=== PATIENT | female | born 2000 | race Caucasian/White ===

== ENCOUNTER 2020-02-23 01:37 | Emergency (ER) | payer SELFPAY ==
[2020-02-23 02:00] LABS: BACTERIA,URINE FEW /HPF; BILIRUBIN,URINE NEGATIVE (NEGATIVE); CLARITY,URINE SLIGHTLY CLOUDY; COLOR,URINE YELLOW; GLUCOSE, URINE (UA) NEGATIVE (NEGATIVE); KETONES,URINE 3+ (NEGATIVE); LEUKOCYTE ESTERASE ,URINE NEGATIVE (NEGATIVE); NITRITE,URINE NEGATIVE (NEGATIVE); PH,URINE 6.5 (5-9); PROTEIN,URINE NEGATIVE (NEGATIVE)
[2020-02-23 02:01] LABS: URINE OTHER NO /HPF
[2020-02-23] MEDS ORDERED: HYDROcodone/APAP 5 MG/325 MG (LORTAB) TAB PO STA (02:07)
[2020-02-23] MEDS ORDERED: ONDANSETRON 4 MG (ZOFRAN) ORAL DISSOLVE TAB PO STA (02:07)
--- NOTE | 2020-02-23 02:14 | ED General ---
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 She reports she thinks she is around 4 months as well. She has had no care. She denies any vaginal bleeding or discharge. She has no history of kidney stones that she is aware or that run in the family. She has had n/v with the pain. She feels the pain is 9-10 out of 10 and wrapping around her flank. She has not seen any provider for her and is not taking any medicines. She is not aware of any allergies to medicines. This is her first . Allergies and Home Medications Allergies Coded Allergies: No Known Drug Allergies (Unverified , 02/23/20) Patient Home Medication List Home Medication List Reviewed: Yes Review of Systems Review of Systems Constitutional: No chills, No fever EENTM: no symptoms reported Respiratory: no symptoms reported Cardiovascular: no symptoms reported Gastrointestinal: see HPI Genitourinary: see HPI; No discharge, No hematuria : Yes (about 4 months along) Musculoskeletal: see HPI Skin: no symptoms reported Psychiatric/Neurological: Anxiety Past Btwidzo-Rrzrar-Pdcjnq Hx Past Med/Social Hx: Reviewed Nursing Past Med/Soc Hx Patient Social History Alcohol Use: Denies Use Recreational Drug Use: No Recent Foreign Travel: No Contact w/Someone Who Travel: No Recent Infectious Disease Expo: No Recent Hopitalizations: No Physical Abuse: No Sexual Abuse: No Past Medical History Surgeries: No Respiratory: No Cardiac: No Neurological: No Genitourinary: No Gastrointestinal: No Musculoskeletal: No Endocrine: No HEENT: No Cancer: No Psychosocial: No Integumentary: No Blood Disorders: No Physical Exam Vital Signs Vital Signs - First Documented 02/23/20 01:48 Temp 36.6 Pulse 100 Resp 16 B/P (MAP) 132/77 (95) Pulse Ox 99 O2 Delivery Room Air Capillary Refill : Less Than 3 Seconds Height, Weight, BMI Height: '" Weight: lbs. oz. kg; BMI Method: General Appearance: WD/WN, Mild Distress Respiratory: Chest Non Tender, Lungs Clear, Normal Breath Sounds, No Accessory Muscle Use, No Respiratory Distress Cardiovascular: Regular Rate, Rhythm, Normal Peripheral Pulses Gastrointestinal: Normal Bowel Sounds, No Pulsatile Mass, Soft, Tenderness (left flank wrapping around her left side) Extremity: Normal Capillary Refill, No Pedal Edema Neurologic/Psychiatric: Alert, Oriented x3 Skin: Normal Color, Warm/Dry Progress/Results/Core Measures Suspected Sepsis Recent Fever Within 48 Hours: No Infection Criteria Present: None New/Unexplained Altered Menta: No Sepsis Screen: No Definite Risk SIRS Temperature: Pulse: 100 Respiratory Rate: 16 Laboratory Tests 02/23/20 02:23: White Blood Count 11.5H Blood Pressure 132 /77 Mean: 95 Laboratory Tests 02/23/20 02:23: Creatinine 0.42L, Platelet Count 302, Total Bilirubin 0.2 Results/Orders Lab Results Laboratory Tests Test 02/23/20 01:49 02/23/20 02:23 Range/Units Urine Color YELLOW Urine Clarity SLIGHTLY CLOUDY Urine pH 6.5 5-9 Urine Specific [place] >=1.030 1.016-1.022 Urine Protein NEGATIVE NEGATIVE Urine Glucose (UA) NEGATIVE NEGATIVE Urine Ketones 3+ H NEGATIVE Urine Nitrite NEGATIVE NEGATIVE Urine Bilirubin NEGATIVE NEGATIVE Urine Urobilinogen 0.2 < = 1.0 MG/DL Urine Leukocyte Esterase NEGATIVE NEGATIVE Urine RBC (Auto) NEGATIVE NEGATIVE Urine RBC NONE /HPF Urine WBC NONE /HPF Urine Squamous Epithelial Cells 5-10 /HPF Urine Crystals NONE /LPF Urine Bacteria FEW H /HPF Urine Casts NONE /LPF Urine Mucus SMALL H /LPF Urine Other NO /HPF White Blood Count 11.5 H 4.3-11.0 10^3/uL Red Blood Count 3.85 L 4.35-5.85 10^6/uL Hemoglobin 11.5 11.5-16.0 G/DL Hematocrit 33 L 35-52 % Mean Corpuscular Volume 86 80-99 FL Mean Corpuscular Hemoglobin 30 25-34 PG Mean Corpuscular Hemoglobin Concent 35 32-36 G/DL Red Cell Distribution Width 13.2 10.0-14.5 % Platelet Count 302 130-400 10^3/uL Mean Platelet Volume 8.1 7.4-10.4 FL Immature Granulocyte % (Auto) 0 % Neutrophils (%) (Auto) 80 H 42-75 % Lymphocytes (%) (Auto) 15 12-44 % Monocytes (%) (Auto) 4 0-12 % Eosinophils (%) (Auto) 0 0-10 % Basophils (%) (Auto) 0 0-10 % Neutrophils # (Auto) 9.2 H 1.8-7.8 X 10^3 Lymphocytes # (Auto) 1.7 1.0-4.0 X 10^3 Monocytes # (Auto) 0.5 0.0-1.0 X 10^3 Eosinophils # (Auto) 0.0 0.0-0.3 10^3/uL Basophils # (Auto) 0.0 0.0-0.1 10^3/uL Immature Granulocyte # (Auto) 0.0 0.0-0.1 10^3/uL Sodium Level 135 135-145 MMOL/L Potassium Level 3.4 L 3.6-5.0 MMOL/L Chloride Level 100 98-107 MMOL/L Carbon Dioxide Level 20 L 21-32 MMOL/L Anion Gap 15 H 5-14 MMOL/L Blood Urea Nitrogen 9 7-18 MG/DL Creatinine 0.42 L 0.60-1.30 MG/DL Estimat Glomerular Filtration Rate > 60 BUN/Creatinine Ratio 21 Glucose Level 108 H 70-105 MG/DL Calcium Level 8.9 8.5-10.1 MG/DL Corrected Calcium 9.1 8.5-10.1 MG/DL Total Bilirubin 0.2 0.1-1.0 MG/DL Aspartate Amino Transf (AST/SGOT) 18 5-34 U/L Alanine Aminotransferase (ALT/SGPT) 21 0-55 U/L Alkaline Phosphatase 65 40-136 U/L Total Protein 6.8 6.4-8.2 GM/DL Albumin 3.7 3.2-4.5 GM/DL Lipase 24 8-78 U/L Human Chorionic Gonadotropin, Quant 8257 H <5 MIU/ML My Orders Orders - LISETH FLAHERTY MD Ua Culture If Indicated (02/23/20 01:49) Heart Tones (02/23/20 01:50) Ondansetron Oral Dissolve Tab (Zofran (02/23/20 02:07) Hydrocodone/Apap 5/325 Tablet (Lortab 5 (02/23/20 02:07) Comprehensive Metabolic Panel (02/23/20 02:23) Lipase (02/23/20 02:23) Ed Iv/Invasive Line Start (02/23/20 02:23) Cbc With Automated Diff (02/23/20 02:23) Hcg,Quantitative (02/23/20 02:24) Ns Iv 1000 Ml (Sodium Chloride 0.9%) (02/23/20 02:24) Rx-Ondansetron Po (Rx-Zofran Po) (02/23/20 03:15) Vital Signs/I&O 02/23/20 01:48 Temp 36.6 Pulse 100 Resp 16 B/P (MAP) 132/77 (95) Pulse Ox 99 O2 Delivery Room Air Capillary Refill : Less Than 3 Seconds Blood Pressure Mean: 95 Progress Note #1: Progress Note urine sent to lab for testing. FHT around 136. Give Zofran 8 mg for nausea. See about Hydrocodone for pain. Progress Note #2: Time: 02:14 Progress Note UA shows elevated specific gravity and 3 + ketones to go with dehydration but not showing blood, nit, LE, or signs of UTI. Reviewed with pt and family that I could still not officially rule out a kidney stone or GI source of her symptoms with her being but could check labs and give IVF for hydration and if not improving with the po meds that were just given could add IV meds for nausea/pain. If ultrasound is still needed it would not be available until after 8 am Progress Note #3: Time: 03:07 Progress Note CBC with WBC count at 11.5 and mild left shift. CMP with no acute significant abnormality to explain her pain. Beta HCG at 8452. On recheck of patient she is sleeping comfortably in room. She states her pain is gone. Will have her push fluids and rest. Try Zofran prn for nausea. Acetaminophen if needed for pain. check with clinic for continued concerns. Return or see clinic if having more pain so can get ultrasound. Departure Impression Primary Impression: Acute left flank pain Additional Impression: Dehydration during Disposition: 01 HOME, SELF-CARE Condition: Stable Departure-Patient Inst. Decision time for Depature: 03:17 Referrals: NO,LOCAL PHYSICIAN (PCP) Primary Care Physician HADLEY LOPEZ DO Patient Instructions: Dehydration, Adult (DC), Flank Pain (DC), Stomach Pain in Early Add. Discharge Instructions: Make sure to drink plenty of water and stay well hydrated. You could try the dissolving nausea medicine if needed to help keep your stomach settled and keep from throwing up. Try Acetaminophen (Tylenol) if needed for pain Follow up with clinic and see Dr. Lopez or OB doctor for continued concerns or recurrent pain. If pain worsens or having more problems you could return or be seen again and an Ultrasound may be needed to check for a kidney stone or ovarian cyst or reason you are having pain during the . All discharge instructions reviewed with patient and/or family. Voiced understanding. Scripts Ondansetron (Ondansetron Odt) 4 Mg Tab.rapdis 4 MG PO Q6H PRN for NAUSEA/VOMITING for 2 Days, #8 TAB 0 Refills Prov: LISETH FLAHERTY MD 02/23/20 LISETH FLAHERTY MD Feb 23, 2020 02:14
[2020-02-23] MEDS ORDERED: NS IV 1000 ML 1,000 ML IV STA (02:24)
[2020-02-23 02:33] LABS: BASOPHILS % (AUTO) 0 % (0-10); EOSINOPHILS % (AUTO) 0 % (0-10); HEMATOCRIT 33 % (35-52); HEMOGLOBIN 11.5 G/DL (11.5-16.0); LYMPHOCYTES # (AUTO) 1.7 X 10^3 (1.0-4.0); LYMPHOCYTES % (AUTO) 15 % (12-44); MEAN CORPUSCULAR HEMOGLOBIN 30 PG (25-34); MEAN CORPUSCULAR HGB CONC 35 G/DL (32-36); MEAN CORPUSCULAR VOLUME 86 FL (80-99); MEAN PLATELET VOLUME 8.1 FL (7.4-10.4); MONOCYTES # (AUTO) 0.5 X 10^3 (0.0-1.0); MONOCYTES % (AUTO) 4 % (0-12); NEUTROPHILS # (AUTO) 9.2 X 10^3 (1.8-7.8); NEUTROPHILS % (AUTO) 80 % (42-75); PLATELET COUNT 302 10^3/uL (130-400); WHITE BLOOD COUNT 11.5 10^3/uL (4.3-11.0)
[2020-02-23 02:52] LABS: ALANINE AMINOTRANSFERASE 21 U/L (0-55); ALBUMIN 3.7 GM/DL (3.2-4.5); ALKALINE PHOSPHATASE 65 U/L (40-136); BILIRUBIN,TOTAL 0.2 MG/DL (0.1-1.0); BUN/CREATININE RATIO 21; CALCIUM 8.9 MG/DL (8.5-10.1); CARBON DIOXIDE 20 MMOL/L (21-32); CHLORIDE 100 MMOL/L (98-107); CREATININE SERUM 0.42 MG/DL (0.60-1.30); GFR ESTIMATED > 60; GLUCOSE 108 MG/DL (70-105); LIPASE 24 U/L (8-78); POTASSIUM 3.4 MMOL/L (3.6-5.0); SODIUM 135 MMOL/L (135-145); TOTAL PROTEIN 6.8 GM/DL (6.4-8.2)
[2020-02-23] MEDS ORDERED: RX-ONDANSETRON 4 MG ODT (ZOFRAN) PPK #4 PO PRN (03:15)
[2020-02-23] MEDS ORDERED: ONDA4TAB11 PO (03:20)
[2020-02-23 03:22] VITALS: BP 132/77
== END 2020-02-23 03:23 | disposition home or self-care (01) ==
LOC: ER FS 01:44
DX: O26.899 Other specified pregnancy related conditions, unspecified trimester (principal); R10.9 Unspecified abdominal pain; O99.280 Endocrine, nutritional and metabolic diseases complicating pregnancy, unspecified trimester; E86.0 Dehydration; Z3A.00 Weeks of gestation of pregnancy not specified
CPT/HCPCS: 36415; 80053; 81000; 83690; 84702; 85025

== ENCOUNTER → 2020-05-24 | Outpatient (CLI) | payer SELFPAY ==
[~2020-05-24] MED LIST: ONDA4TAB11 PO
== END ==
LOC: LABNPT 14:43
PROVIDERS: ATTEND Family Medicine
DX: Z34.03 Encounter for supervision of normal first pregnancy, third trimester (principal)
CPT/HCPCS: 87081

== ENCOUNTER → 2020-05-25 | Outpatient (CLI) | payer SELFPAY ==
[2020-05-25 15:37] LABS: HEMOGLOBIN 12.1 G/DL (11.5-16.0); MEAN PLATELET VOLUME 8.9 FL (7.4-10.4); WHITE BLOOD COUNT 8.7 10^3/uL (4.3-11.0)
== END ==
LOC: LAB FS 13:52
PROVIDERS: ATTEND Family Medicine
DX: Z34.03 Encounter for supervision of normal first pregnancy, third trimester (principal); Z3A.00 Weeks of gestation of pregnancy not specified
CPT/HCPCS: 36415; 84443; 85027; 86703; 86762; 86780; 86850; 86900; 86901; 87088; 87340

== ENCOUNTER 2020-06-16 20:01 | Inpatient (IN) | payer SELFPAY ==
[~2020-06-16] VITALS: Ht 157 cm; Wt 87.4 kg
[2020-06-16] VITALS (7 sets, daily range): BP systolic 114–128; BP diastolic 72–84
--- NOTE | 2020-06-16 20:10 | NUR ---
DICKMALIKA Williamson presented to unit via W'C from ED, accompanied by S/O , with c/o INDUCTION 40 11/01. DICKMALIKA Williamson weighed, gowned, voided, and to bed. EFHM and TOCO applied, VS taken. DICKMALIKA oriented to bed controls, call light, TV, heat, and A/C controls.
[2020-06-16] MEDS ORDERED: NS (IVPB) 250 ML ONE (21:03)
[2020-06-16 21:10] LABS: BASOPHILS % (AUTO) 0 % (0-10); BILIRUBIN,URINE NEGATIVE (NEGATIVE); CLARITY,URINE CLEAR; COLOR,URINE YELLOW; EOSINOPHILS # (AUTO) 0.1 10^3/uL (0.0-0.3); EOSINOPHILS % (AUTO) 1 % (0-10); GLUCOSE, URINE (UA) NEGATIVE (NEGATIVE); HEMATOCRIT 37 % (35-52); HEMOGLOBIN 12.6 g/dL (11.5-16.0); KETONES,URINE 2+ (NEGATIVE); LEUKOCYTE ESTERASE ,URINE NEGATIVE (NEGATIVE); LYMPHOCYTES # (AUTO) 2.4 10^3/uL (1.0-4.0); LYMPHOCYTES % (AUTO) 24 % (12-44); MEAN CORPUSCULAR HEMOGLOBIN 29 pg (25-34); MEAN CORPUSCULAR HGB CONC 34 g/dL (32-36); MEAN CORPUSCULAR VOLUME 84 fL (80-99); MEAN PLATELET VOLUME 9.7 fL (9.0-12.2); MONOCYTES # (AUTO) 0.6 10^3/uL (0.0-1.0); MONOCYTES % (AUTO) 6 % (0-12); NEUTROPHILS # (AUTO) 6.8 10^3/uL (1.8-7.8); NEUTROPHILS % (AUTO) 68 % (42-75); NITRITE,URINE NEGATIVE (NEGATIVE); PLATELET COUNT 270 10^3/uL (130-400); PROTEIN,URINE NEGATIVE (NEGATIVE)
[2020-06-16] MEDS: D5 LR IV SOLUTION 1,000 ML IV SCH (21:11)
[2020-06-16] MEDS ORDERED: NS (IVPB) 250 ML IV ONE (21:15)
[2020-06-16] MEDS ORDERED: MISOPROSTOL 100 MCG (CYTOTEC) TAB ONE (21:22)
[2020-06-16 21:29] LABS: BACTERIA,URINE FEW /HPF
[2020-06-16] MEDS ORDERED: TERBUTALINE INJ 1 MG/ML (BRETHINE) AMP SC PRN (21:30)
[2020-06-16] MEDS ORDERED: MISOPROSTOL 100 MCG (CYTOTEC) TAB PO ONE (21:30)
[2020-06-17] VITALS (21 sets, daily range): BP systolic 103–139; BP diastolic 56–99
[2020-06-17] MEDS ORDERED: MISOPROSTOL 100 MCG (CYTOTEC) TAB PO SCH (01:30)
--- NOTE | 2020-06-17 01:40 | NUR ---
Pt states she thinks her water broke. large amount of clear fluid noted on chux. amnisure positive. VE done. see flowsheet. Pt is feeling the ctx more. still able to sleep some.
[2020-06-17] MEDS: D5 LR IV SOLUTION 1,000 ML IV SCH (04:54)
--- NOTE | 2020-06-17 06:00 | NUR ---
pt up to bathroom to void. back to bed. no needs at this time.
--- NOTE | 2020-06-17 07:11 | NUR ---
Dr Bustos here to see pt. Discussed POC. No questions or needs at this time.
[2020-06-17] MEDS ORDERED: OXYTOCIN PRE-MIX DRIP 500 ML IV ONE (07:25)
--- NOTE | 2020-06-17 07:28 | NUR ---
Report given to Taylor KLINE
--- NOTE | 2020-06-17 07:34 | History & Physical-OB ---
OB - Chief Complaint & HPI Date/Time Date of Admission: Date of Admission: Jun 16, 2020 at 20:01 Date seen by a Provider: Jun 17, 2020 Time Seen by a Provider: 07:10 Chief Complaint/History OB-Reason for Admission/Chief: Induction of Labor Hx : 1 Hx Para: 0 Expected Date of Delivery: Jun 10, 2020 Gestational Age in Weeks: 40 Gestational Age in Days: 6 Indication for induction: post dates Other reason for admission: Patient had limited PNC with Dr. Titus in [facility] who is no longer delivering at [facility]. Dr. Titus contacted me last week to notify me of this patient who would be post dates with 3 visits. I agreed to proceed with induction, GBS was done at that last appointment. Admission Nurse Assessment Rev: Yes History of Labs gbs neg Allergies and Home Medications Allergies Coded Allergies: No Known Drug Allergies (Unverified , 06/16/20) Patient Home Medication List Home Medication List Reviewed: Yes OB - History Hx of Present Care: Yes Ultrasounds: Normal mid trimester US Obstetrical Complications: None Medical Complications: None Patient Past Medical History n/a Immunizations Hepatitis A: No Hepatitis B: No OB - Admission Exam Physical Exam Vitals: Vital Signs 06/16/20 06/17/20 06/17/20 06/17/20 21:15 00:45 06:00 07:12 Temp 36.7 Pulse 88 B/P (MAP) 115/64 (81) Pulse Ox 98 O2 Delivery Room Air HEENT: NCAT Heart: Rhythm Normal Lungs: Clear Abdomen: Gravid Extremities: Normal Reflexes: Normal Cervical Dilatation: 1cm Effacement: 75% Station: -1 Membranes: Intact Heart Rate: 130's Accelerations: Accelerations Present Decelerations: No Decelerations Short Term Variability: Present Mcc Variability: Average (6-25) Contractions on Admission: 6-10 Minutes Apart Intensity: Mild Labs Laboratory Tests Test 06/16/20 20:55 06/16/20 21:30 Range/Units White Blood Count 10.0 4.3-11.0 10^3/uL Red Blood Count 4.39 3.80-5.11 10^6/uL Hemoglobin 12.6 11.5-16.0 g/dL Hematocrit 37 35-52 % Mean Corpuscular Volume 84 80-99 fL Mean Corpuscular Hemoglobin 29 25-34 pg Mean Corpuscular Hemoglobin Concent 34 32-36 g/dL Red Cell Distribution Width 12.2 10.0-14.5 % Platelet Count 270 130-400 10^3/uL Mean Platelet Volume 9.7 9.0-12.2 fL Immature Granulocyte % (Auto) 0 % Neutrophils (%) (Auto) 68 42-75 % Lymphocytes (%) (Auto) 24 12-44 % Monocytes (%) (Auto) 6 0-12 % Eosinophils (%) (Auto) 1 0-10 % Basophils (%) (Auto) 0 0-10 % Neutrophils # (Auto) 6.8 1.8-7.8 10^3/uL Lymphocytes # (Auto) 2.4 1.0-4.0 10^3/uL Monocytes # (Auto) 0.6 0.0-1.0 10^3/uL Eosinophils # (Auto) 0.1 0.0-0.3 10^3/uL Basophils # (Auto) 0.0 0.0-0.1 10^3/uL Immature Granulocyte # (Auto) 0.0 0.0-0.1 10^3/uL Urine Color YELLOW Urine Clarity CLEAR Urine pH 6.0 5-9 Urine Specific [place] >=1.030 1.016-1.022 Urine Protein NEGATIVE NEGATIVE Urine Glucose (UA) NEGATIVE NEGATIVE Urine Ketones 2+ H NEGATIVE Urine Nitrite NEGATIVE NEGATIVE Urine Bilirubin NEGATIVE NEGATIVE Urine Urobilinogen 1.0 < = 1.0 MG/DL Urine Leukocyte Esterase NEGATIVE NEGATIVE Urine RBC (Auto) NEGATIVE NEGATIVE Urine RBC NONE /HPF Urine WBC 2-5 /HPF Urine Crystals NONE /LPF Urine Bacteria FEW H /HPF Urine Casts NONE /LPF Urine Mucus MODERATE H /LPF Urine Culture Indicated YES OB - Assessment/Plan/Diagnosis Assessment Assessment: induction of labor Admission Dx 20 yo @ 40.6 weeks Post dates GBS neg Limited care Admission Status: Inpatient Order (span 2 midnights) Reason for Inpatient Admission: induction of labor at term Plan Plan: Induction Induction Method: per Misoprostol Protocol KISHORE DRUMMOND DO Jun 17, 2020 07:34
[2020-06-17] MEDS ORDERED: LIDOCAINE/EPI 2% 1:200,00 (XYLOCAINE) 10 ML VIAL ONE (09:25)
--- NOTE | 2020-06-17 10:23 | OB Labor & Delivery Record ---
L&D History Date of Service Date of Service: Jun 17, 2020 History Expected Date of Delivery: Jun 10, 2020 Gestational Age in Weeks: 40 Hx : 1 Hx Para: 0 Complications Events: No Care (3 visits with another provider.) Operative Indications (Cesarea: N/A-Vaginal Delivery Intrapartal Events: None L&D Stage1 Stage One Onset of Labor - Date: Jun 17, 2020 Monitors and Tracing Monitor Mode: External Heart Rate: 145 Monitor Decelerations: Early Station: -2 Sap Basis Consultant Variability: Average (6-10) Short Term Variability: Present Presentation: Vertex Vital Signs VS - Last 72 Hours, by Label 06/16/20 06/16/20 06/16/20 06/16/20 20:20 21:15 21:45 22:15 Temp 37.0 37.0 Pulse 89 89 89 77 Resp 18 18 18 18 B/P (MAP) 128/83 (98) 123/72 (89) 115/79 (91) Pulse Ox 98 O2 Delivery Room Air Room Air Room Air 06/16/20 06/16/20 06/16/20 06/17/20 22:45 23:15 23:44 00:15 Pulse 88 104 78 73 Resp 18 18 18 18 B/P (MAP) 120/84 (96) 114/72 (86) 120/75 (90) 119/71 (87) O2 Delivery Room Air Room Air Room Air Room Air 06/17/20 06/17/20 06/17/20 06/17/20 00:45 01:20 03:00 05:00 Temp 36.4 Pulse 88 88 89 81 Resp 18 18 18 20 B/P (MAP) 124/84 (97) 124/84 (97) 113/69 (84) 135/89 (104) O2 Delivery Room Air 06/17/20 06/17/20 06/17/20 06/17/20 05:00 06:00 07:12 07:25 Temp 36.7 36.0 36.7 36.6 Pulse 100 88 77 Resp 20 20 B/P (MAP) 132/83 (99) 115/64 (81) 111/58 (75) O2 Delivery Room Air Rupture of Membranes Spontaneous Ruture of Membrane: Yes Amniotic Membrane Rupture Time: 0140 Amniotic Membrane Fluid Desc.: Clear Vaginal Bleeding Description: Normal Show Progress/Notes Patient admitted for cervical ripening last night, given cytotec PO overnight, SROM occured and pitocin started this AM. She progressed to complete and +2 station without epidural or IV analgesia. L&D Stage2 Stage Two Stage II Date: Jun 17, 2020 Monitors and Tracing Monitor Mode: External Heart Rate: 145 Monitor Accelerations: Uniform Monitor Decelerations: Variable Sap Basis Consultant Variability: Average (6-10) Short Term Variability: Present Position: Right Occiput Anterior Presentation: Vertex Signs of Distress by FHT Signs of Distress Due to ineffective maternal pushing discussed operative vacuum delivery. Kiwi placed on flexion point on scalp, 50 mmhg applied with next maternal pushing and with gentle extension of the head over a RML episiotomy the head was delivered and suction released. Anterior and posterior shoulders delivered w ithout difficulty. Cord Descript/Complications Cord Vessel Description: 3 Vessels Delivery Type Infant Delivery Method: Low Vacuum Extraction Anterior Shoulder: Right Episiotomy/Perineal Laceration Laceraction(s)/Extensions: Yes Episiotomy Description: Right Mediolateral Location Modifier: Right Sutures Used: Vicryl Degree (describe repair) RML repaired using 3-0 and 2-0 vicryl suture in usual fashion. Condition of Infant Delivery 1 minute Comment: 8 5 minute Comment: 9 Notes Live male weight 8lbs 9 oz. Condition of Infant Condition of Infant: Living Exam: No Observed Abnormalities Resuscitation Resuscitation: N/A - Spontaneous Resp L&D Stage3 Stage Three Stage III Date: Jun 17, 2020 Pictocin Pitocin Administration mu/min: 2 Pitocin ml/hr: 2 Pitocin Administration Comment: 30 mu wide open at delivery of placenta Placenta Delivery Placenta Delivery: Spontaneous Delivery Summary Summary Estimated blood loss (mL): 300 Attending at delivery: Kishore Drummond DO Condition of Delivery Examined: Cervix Examined, Uterus Explored Post Hemorrhage: No Condition of Mother stable Condition of (s) stable KISHORE DRUMMOND DO Jun 17, 2020 10:23
[2020-06-17] MEDS ORDERED: HYDROcodone/APAP 5 MG/325 MG (LORTAB) TAB PO PRN (10:30)
[2020-06-17] MEDS ORDERED: OXYTOCIN PRE-MIX DRIP 500 ML IV SCH (10:30)
[2020-06-17] MEDS ORDERED: WITCH HAZEL(TUCKS) 40 EA JAR TOP PRN (10:30)
[2020-06-17] MEDS ORDERED: TETANUS,DIPTH,PERTUSS P/F (BOOSTRIX) 0.5 ML VIAL IM ONE (10:30)
[2020-06-17] MEDS ORDERED: MEASLES,MUMPS,RUBELLA 1 EA INJ SQ ONE (10:30)
[2020-06-17] MEDS ORDERED: DIBUCAINE (NUPERCAINAL) 1% OINT 30 GM TOP PRN (10:30)
[2020-06-17] MEDS ORDERED: BENZOCAINE/MENTHOL (DERMOPLAST) 60 ML CAN TP PRN (10:30)
[2020-06-17] MEDS: IBUPROFEN 600 MG (MOTRIN) TAB PO SCH ×2 (12:32→22:21)
--- NOTE | 2020-06-17 12:35 | NUR ---
up to bathroom. spontaneous void. performed pericare independently. applied dermoplast. new vpad on. ambulated to room 312 with RN , s/o and at side. reviewed temp control, call light, and remote. denies further need at this time.
[2020-06-17] MEDS ORDERED: CATHETER FLUSH 10 ML SYR IV SCH (14:00)
[2020-06-17] MEDS ORDERED: DOCUSATE SODIUM 100 MG (COLACE) CAP PO SCH (21:00)
[2020-06-18] MEDS: IBUPROFEN 600 MG (MOTRIN) TAB PO SCH ×3 (05:20→10:37)
[2020-06-18 05:21] VITALS: BP 98/54
[2020-06-18 05:49] LABS: BASOPHILS % (AUTO) 0 % (0-10); EOSINOPHILS # (AUTO) 0.1 10^3/uL (0.0-0.3); EOSINOPHILS % (AUTO) 1 % (0-10); HEMATOCRIT 32 % (35-52); HEMOGLOBIN 10.8 g/dL (11.5-16.0); LYMPHOCYTES # (AUTO) 2.4 10^3/uL (1.0-4.0); LYMPHOCYTES % (AUTO) 25 % (12-44); MEAN CORPUSCULAR HEMOGLOBIN 29 pg (25-34); MEAN CORPUSCULAR HGB CONC 34 g/dL (32-36); MEAN CORPUSCULAR VOLUME 87 fL (80-99); MEAN PLATELET VOLUME 9.8 fL (9.0-12.2); MONOCYTES # (AUTO) 0.7 10^3/uL (0.0-1.0); MONOCYTES % (AUTO) 7 % (0-12); NEUTROPHILS # (AUTO) 6.6 10^3/uL (1.8-7.8); NEUTROPHILS % (AUTO) 67 % (42-75); PLATELET COUNT 175 10^3/uL (130-400)
[2020-06-18] MEDS ORDERED: PRENATAL VITAMIN 1 EA TAB PO SCH (07:00)
[2020-06-18 08:00] VITALS: BP 116/67
[2020-06-18] MEDS ORDERED: DCS100C PO (08:13)
[2020-06-18] MEDS ORDERED: ACHD5005 PO (08:13)
[2020-06-18] MEDS ORDERED: BENZ78AE5 TP (08:13)
[2020-06-18] MEDS ORDERED: DIBU30OI TOP (08:13)
[2020-06-18] MEDS ORDERED: IBUP-844 PO (08:13)
--- NOTE | 2020-06-18 08:15 | Discharge Inst-Women's Service ---
Discharge Inst-Women's Serv Depart Medication/Instructions New, Converted or Re-Newed RX: RX on Chart Final Diagnosis PPD 1 VAVD Problems Reviewed?: Yes Consults/Follow Up Additional Follow Up: Yes Orders/Referrals Dr. Drummond in 6 weeks Activity Activity: Activity as Tolerated Driving Instructions: No Driving for 1 Week NO SMOKING: NO SMOKING Nothing Inside Vagina: No Douching, No [place], No Tampons Diet Discharge Diet: No Restrictions Symptoms to Report to : Bleeding Excessive, Pain Increased, Fever Over 101 Degrees F, Vaginal Bleeding Increase, Questions/Concerns For Any Problems or Questions: Contact Your Physician KISHORE DRUMMOND DO Jun 18, 2020 08:15
--- NOTE | 2020-06-18 08:16 | Postpartum Progress Note ---
Note Note Day # 1 Subjective: Patient is without complaints. Ambulating, voiding. Tolerating a regular diet without nausea or vomiting. Normal lochia. Pain is well controlled with oral pain medications. Objective: Physical Exam: General - Alert and oriented, no apparent distress Abdomen - Soft, appropriately tender to palpation, non-distended, fundus firm at umbilicus Extremities - no edema, negative Maria R's bilaterally Assessment: PPD 1 VAVD Plan: Routine care. Encourage breast feeding. Encourage ambulation. Ferrous sulfate supplementation. Plan for discharge today Vitals - Labs Vital Signs - I&O Vital Signs Date Time Temp Pulse Resp B/P (MAP) Pulse Ox O2 Delivery O2 Flow Rate FiO2 06/18/20 05:21 36.3 80 18 98/54 (69) 98 06/17/20 23:30 36.2 80 20 103/56 (72) 97 Room Air 06/17/20 20:15 36.3 90 20 117/72 (87) Room Air 06/17/20 16:15 36.5 100 20 119/68 (85) Room Air 06/17/20 12:25 36.9 103 20 128/77 (94) Room Air 06/17/20 11:10 36.8 106 20 128/58 (81) Room Air 06/17/20 10:55 100 20 119/56 (77) Room Air 06/17/20 10:40 37.0 111 20 124/60 (81) Room Air 06/17/20 10:25 37.1 100 20 130/76 (94) Room Air 06/17/20 10:10 37.0 115 20 118/66 (83) Room Air 06/17/20 09:40 37.0 169 20 139/99 (112) Room Air 06/17/20 09:10 78 20 112/65 (81) Room Air 06/17/20 08:55 68 20 109/68 (82) Room Air 06/17/20 08:40 93 20 103/62 (76) Room Air 06/17/20 08:25 82 20 120/75 (90) Room Air I & O 06/18/20 06:59 Intake Total 1625 ml Balance 1625 ml Labs Laboratory Tests 06/18/20 05:20: White Blood Count 10.0, Red Blood Count 3.71L, Hemoglobin 10.8L, Hematocrit 32L, Mean Corpuscular Volume 87, Mean Corpuscular Hemoglobin 29, Mean Corpuscular Hemoglobin Concent 34, Red Cell Distribution Width 12.5, Platelet Count 175, Mean Platelet Volume 9.8, Immature Granulocyte % (Auto) 1, Neutrophils (%) (Auto) 67, Lymphocytes (%) (Auto) 25, Monocytes (%) (Auto) 7, Eosinophils (%) (Auto) 1, Basophils (%) (Auto) 0, Neutrophils # (Auto) 6.6, Lymphocytes # (Auto) 2.4, Monocytes # (Auto) 0.7, Eosinophils # (Auto) 0.1, Basophils # (Auto) 0.0, Immature Granulocyte # (Auto) 0.1 Microbiology 06/16/20 Urine Culture - Final, Complete Gram Pos Mixed Bacterial [place] KISHORE DRUMMOND DO Jun 18, 2020 08:16
[2020-06-18] MEDS ORDERED: FERROUS SULF 325 MG (IRON) TAB PO SCH (09:00)
--- NOTE | 2020-06-18 13:52 | NUR ---
MALIKA CRAWFORD demonstrates understanding of discharge instructions and accurately returns instructions upon questioning. Copy of Post-Discharge Instructions and Medication Discharge Instructions given to PATIENT. MALIKA CRAWFORD is able to manage continuing needs after discharge. Patients belongings returned to PATIENT. Skin dry and intact; no breakdown noted. Patient discharged from 3312-1 on 06-18-20 at 1352. MALIKA CRAWFORD left floor via W/C, accompanied by STAFF.
== END 2020-06-18 13:52 | disposition home or self-care (01) | DRG 807 ==
LOC: MERGE 20:01 → LDRP 20:01
PROVIDERS: ADMIT Obstetrics & Gynecology; ATTEND Obstetrics & Gynecology
PROC: 3E0D7GC Introduction of Other Therapeutic Substance into Mouth and Pharynx, Via Natural or Artificial Opening (ICD-10-PCS; 2020-06-16)
PROC: 10D07Z6 Extraction of Products of Conception, Vacuum, Via Natural or Artificial Opening (ICD-10-PCS; principal; 2020-06-17)
PROC: 0W8NXZZ Division of Female Perineum, External Approach (ICD-10-PCS; 2020-06-17)
DX: O48.0 Post-term pregnancy (principal); Z37.0 Single live birth; O75.81 Maternal exhaustion complicating labor and delivery; Z3A.40 40 weeks gestation of pregnancy; Z20.822 Contact with and (suspected) exposure to COVID-19
CPT/HCPCS: 36415; 81000; 85025; 86850; 86900; 86901; 87088; 87635

== ENCOUNTER 2022-05-24 10:47 | Inpatient (IN) | payer SELFPAY ==
[2022-05-24] VITALS (37 sets, daily range): BP systolic 107–132; BP diastolic 60–88
[~2022-05-24] VITALS: Ht 170 cm; Wt 88.6 kg
[~2022-05-24 10:47] MED LIST changes: +ACHD5005 PO; +BENZ78AE5 TP; +DIBU30OI TOP; +DOCU-239 PO; +IBUP-844 PO
[2022-05-24] MEDS: D5 LR IV SOLUTION 1,000 ML IV SCH ×2 (11:10→19:54)
[2022-05-24] MEDS ORDERED: AMPICILLIN FOR IV USE 2,000 MG in NS (IVPB) 50 ML IV SCH (11:43)
[2022-05-24] MEDS ORDERED: MEPIVACAINE (CARBOCAINE) 2% 50 ML VIAL INJ ONE (11:45)
[2022-05-24] MEDS ORDERED: D5 LR IV SOLUTION 1,000 ML IV SCH (11:45)
[2022-05-24 11:54] LABS: BASOPHILS % (AUTO) 0 % (0-10); EOSINOPHILS % (AUTO) 0 % (0-10); HEMATOCRIT 36 % (35-52); HEMOGLOBIN 11.8 g/dL (11.5-16.0); LYMPHOCYTES # (AUTO) 1.9 10^3/uL (1.0-4.0); LYMPHOCYTES % (AUTO) 21 % (12-44); MEAN CORPUSCULAR HEMOGLOBIN 27 pg (25-34); MEAN CORPUSCULAR HGB CONC 33 g/dL (32-36); MEAN CORPUSCULAR VOLUME 81 fL (80-99); MEAN PLATELET VOLUME 9.3 fL (9.0-12.2); MONOCYTES # (AUTO) 0.5 10^3/uL (0.0-1.0); MONOCYTES % (AUTO) 5 % (0-12); NEUTROPHILS # (AUTO) 6.6 10^3/uL (1.8-7.8); NEUTROPHILS % (AUTO) 73 % (42-75); PLATELET COUNT 287 10^3/uL (130-400); WHITE BLOOD COUNT 9.1 10^3/uL (4.3-11.0)
--- NOTE | 2022-05-24 12:14 | History & Physical-OB ---
OB - Chief Complaint & HPI Date/Time Date of Admission: Date of Admission: May 24, 2022 at 11:45 Date seen by a Provider: May 24, 2022 Time Seen by a Provider: 11:30 Chief Complaint/History OB-Reason for Admission/Chief: Rupture of Membranes Hx : 2 Hx Para: 1 Expected Date of Delivery: May 20, 2022 Gestational Age in Weeks: 40 Gestational Age in Days: 4 Admission Nurse Assessment Rev: Yes Other No OB us performed. She was to have her first one during the afternoon day of admission at [facility] Allergies and Home Medications Allergies Coded Allergies: No Known Drug Allergies (Unverified , 02/23/20) Patient Home Medication List Home Medication List Reviewed: Yes Discontinued Medications Benzocaine/Menthol (Dermoplast Pain Relieving [place]) 78 Gm Aerosol, 56 ML TP UD PRN for PAIN- SEE INSTRUCTIONS Discontinued Reason: No Longer Taking Prescribed by: KISHORE DRUMMOND on 06/18/20812 Last Action: Discontinued Dibucaine (Dibucaine) 30 Gm Oint, 0 GM TOP UD PRN for PAIN- SEE INSTRUCTIONS Discontinued Reason: No Longer Taking Prescribed by: KISHORE DRUMMOND on 06/18/20812 Last Action: Discontinued Docusate Sodium (Dok) 100 Mg Capsule, 100 MG PO BID PRN for CONSTIPATION-1ST LINE Discontinued Reason: No Longer Taking Prescribed by: KISHORE DRUMMOND on 06/18/20812 Last Action: Discontinued Hydrocodone/Acetaminophen (Hydrocodone-Acetamin 5-325 mg) 1 Each Tablet, 1 TAB PO Q4H PRN for PAIN-MODERATE (5-7) Discontinued Reason: No Longer Taking Prescribed by: KISHORE DRUMMOND on 06/18/20812 Last Action: Discontinued Ibuprofen (Ibu) 600 Mg Tablet, 600 MG PO Q6HR Discontinued Reason: No Longer Taking Prescribed by: KISHORE DRUMMOND on 06/18/20812 Last Action: Discontinued Ondansetron (Ondansetron Odt) 4 Mg Tab.rapdis, 4 MG PO Q6H PRN for NAUSEA/VOMITING Discontinued Reason: No Longer Taking Prescribed by: LISETH FLAHERTY on 02/23/20 0320 Last Action: Discontinued OB - History Hx of Present Care: Yes (1 visit) Ultrasounds: No ultrasounds Obstetrical Complications: None Medical Complications: None Other Concerns: late care. First visit May 17 at [facility] Patient Past Medical History n/a Immunizations Hepatitis A: No Hepatitis B: No OB - Admission Exam Physical Exam HEENT: Moist Membranes Heart: Rhythm Normal Abdomen: Gravid Cervical Dilatation: 4cm Membranes: Ruptured Amniotic Fluid: Thin Meconium Heart Rate: 140's Accelerations: Accelerations Present Short Term Variability: Present Labs Laboratory Tests Test 05/24/22 11:10 Range/Units White Blood Count 9.1 4.3-11.0 10^3/uL Red Blood Count 4.40 3.80-5.11 10^6/uL Hemoglobin 11.8 11.5-16.0 g/dL Hematocrit 36 35-52 % Mean Corpuscular Volume 81 80-99 fL Mean Corpuscular Hemoglobin 27 25-34 pg Mean Corpuscular Hemoglobin Concent 33 32-36 g/dL Red Cell Distribution Width 12.5 10.0-14.5 % Platelet Count 287 130-400 10^3/uL Mean Platelet Volume 9.3 9.0-12.2 fL Immature Granulocyte % (Auto) 1 % Neutrophils (%) (Auto) 73 42-75 % Lymphocytes (%) (Auto) 21 12-44 % Monocytes (%) (Auto) 5 0-12 % Eosinophils (%) (Auto) 0 0-10 % Basophils (%) (Auto) 0 0-10 % Neutrophils # (Auto) 6.6 1.8-7.8 10^3/uL Lymphocytes # (Auto) 1.9 1.0-4.0 10^3/uL Monocytes # (Auto) 0.5 0.0-1.0 10^3/uL Eosinophils # (Auto) 0.0 0.0-0.3 10^3/uL Basophils # (Auto) 0.0 0.0-0.1 10^3/uL Immature Granulocyte # (Auto) 0.1 0.0-0.1 10^3/uL OB - Assessment/Plan/Diagnosis Assessment Assessment: rupture of membranes (at term 40 weeks) Admission Dx 1. IUP at term 40 weeks with SROM Admission Status: Inpatient Order (span 2 midnights) Reason for Inpatient Admission: L&D Plan Plan: Expectant Management Other Plan -doesn't desire epidural or IV pain meds -pitocin as needed BEBE GARCIA MD May 24, 2022 12:14
[2022-05-24] MEDS ORDERED: CATHETER FLUSH 10 ML SYR IV SCH (14:00)
[2022-05-24] MEDS ORDERED: OXYTOCIN PRE-MIX DRIP 500 ML IV SCH ×2 (15:30→22:30)
[2022-05-24] MEDS: AMPICILLIN FOR IV USE 1,000 MG in NS (IVPB) 50 ML IV SCH ×2 (15:41→19:53)
--- NOTE | 2022-05-24 16:55 | Labor Progress Note ---
Labor Progress Note Labor Progress Note Date Seen by Provider: May 24, 2022 Time Seen by Provider: 16:40 Subjective: Patient in labor. Pitocin just started within the last hour Objective: (Can we insert 24 hour vitals here?) Cervical exam: 5 per nurse Presentation: vertex heart tones: 140 beats per minute, normal variability, reactive Tocometer: 2 ctx/10 minutes Assessment/Plan: Dorothy Maxwell is a (22 /Para 2 / 1,Gestational Age (wks)38 here for []. CEFM/TOCO Continue pitocin Anticipate vaginal delivery. Vitals - Labs Vital Signs - I&O Vital Signs Date Time Temp Pulse Resp B/P (MAP) Pulse Ox O2 Delivery O2 Flow Rate FiO2 05/24/22 14:20 36.7 95 18 121/79 (93) 05/24/22 13:50 90 18 122/77 (92) 05/24/22 13:20 81 18 117/78 (91) 05/24/22 12:50 94 18 119/76 (90) 05/24/22 12:20 87 18 127/79 (95) 99 Room Air 05/24/22 12:20 38.3 110 18 99 Room Air 05/24/22 12:05 37.3 05/24/22 11:50 104 18 125/79 (94) Room Air 05/24/22 11:20 100 18 118/79 (92) Room Air 05/24/22 10:55 38.3 110 18 124/84 (97) 100 Room Air Labs Laboratory Tests 05/24/22 11:10: White Blood Count 9.1, Red Blood Count 4.40, Hemoglobin 11.8, Hematocrit 36, Mean Corpuscular Volume 81, Mean Corpuscular Hemoglobin 27, Mean Corpuscular Hemoglobin Concent 33, Red Cell Distribution Width 12.5, Platelet Count 287, Rosa M n Platelet Volume 9.3, Immature Granulocyte % (Auto) 1, Neutrophils (%) (Auto) 73, Lymphocytes (%) (Auto) 21, Monocytes (%) (Auto) 5, Eosinophils (%) (Auto) 0, Basophils (%) (Auto) 0, Neutrophils # (Auto) 6.6, Lymphocytes # (Auto) 1.9, Monocytes # (Auto) 0.5, Eosinophils # (Auto) 0.0, Basophils # (Auto) 0.0, Immature Granulocyte # (Auto) 0.1 BEBE GARCIA MD May 24, 2022 16:54
[2022-05-24] MEDS ORDERED: ONDANSETRON 4 MG/2 ML (SDV) Z0FRAN ONE (20:51)
[2022-05-24] MEDS ORDERED: ONDANSETRON 4 MG/2 ML (SDV) Z0FRAN IVP ONE (21:00)
[2022-05-24] MEDS ORDERED: MINERAL OIL 30 ML UDC ONE (21:20)
--- NOTE | 2022-05-24 22:26 | OB Labor & Delivery Record ---
L&D History Date of Service Date of Service: May 24, 2022 History Expected Date of Delivery: May 20, 2022 Gestational Age in Weeks: 40 Hx : 2 Hx Para: 2 Complications Events: Routine care (one visit) Operative Indications (Cesarea: N/A-Vaginal Delivery Intrapartal Events: None L&D Stage1 Stage One Onset of Labor - Date: May 24, 2022 Onset of Labor - Time: 02:00 Monitors and Tracing Monitor Mode: External Heart Rate: 145 Monitor Accelerations: Uniform Monitor Decelerations: None Station: 0 Retail Service Specialist Variability: Average (6-10) Short Term Variability: Present Presentation: Vertex Vital Signs VS - Last 72 Hours, by Label 05/24/22 05/24/22 05/24/22 05/24/22 10:55 11:20 11:50 12:05 Temp 38.3 37.3 Pulse 110 100 104 Resp 18 18 18 B/P (MAP) 124/84 (97) 118/79 (92) 125/79 (94) Pulse Ox 100 O2 Delivery Room Air Room Air Room Air 05/24/22 05/24/22 05/24/22 05/24/22 12:20 12:20 12:50 13:20 Temp 38.3 Pulse 110 87 94 81 Resp 18 18 18 18 B/P (MAP) 127/79 (95) 119/76 (90) 117/78 (91) Pulse Ox 99 99 O2 Delivery Room Air Room Air 05/24/22 05/24/22 05/24/22 05/24/22 13:50 14:20 14:50 15:20 Temp 36.7 Pulse 90 95 81 80 Resp 18 18 18 18 B/P (MAP) 122/77 (92) 121/79 (93) 121/78 (92) 116/75 (89) 05/24/22 05/24/22 05/24/22 05/24/22 15:50 16:20 16:55 17:12 Pulse 93 93 100 90 Resp 18 18 18 18 B/P (MAP) 127/79 (95) 125/81 (96) 128/69 (88) 121/77 (92) 05/24/22 05/24/22 05/24/22 05/24/22 17:28 17:40 17:55 18:10 Temp 36.6 Pulse 93 96 103 112 Resp 18 18 18 18 B/P (MAP) 129/72 (91) 123/72 (89) 125/73 (90) 118/71 (87) 05/24/22 05/24/22 05/24/22 18:25 18:40 18:55 Pulse 101 100 88 Resp 18 18 18 B/P (MAP) 126/70 (88) 126/79 (95) 126/74 (91) Signs of Distress by FHT Signs of Distress no Rupture of Membranes Spontaneous Ruture of Membrane: Yes Amniotic Membrane Rupture Time: 0200 Amniotic Membrane Fluid Desc.: Clear Vaginal Bleeding Description: None L&D Stage2 Stage Two Stage II Date: May 24, 2022 Stage II Time: 21:54 Monitors and Tracing Monitor Mode: External Heart Rate: 145 Monitor Accelerations: Uniform Monitor Decelerations: Early Retail Service Specialist Variability: Average (6-10) Short Term Variability: Present Position: Left Occiput Anterior Presentation: Vertex Signs of Distress by FHT Signs of Distress no Cord Descript/Complications Cord Vessel Description: 3 Vessels Delivery Type Delivery Method: Spontaneous Vaginal Anterior Shoulder: Left Episiotomy/Perineal Laceration Laceraction(s)/Extensions: Yes Episiotomy Description: Midline Sutures Used: Vicryl Degree (describe repair) MLE with L vaginal tear Condition of Delivery 1 minute Comment: 9 5 minute Comment: 9 Condition of Infant Condition of Infant: Living Exam: No Observed Abnormalities Resuscitation Resuscitation: N/A - Spontaneous Resp L&D Stage3 Stage Three Stage III Date: May 24, 2022 Stage III Time: 21:58 Pictocin Pitocin Administration mu/min: 8 Pitocin ml/hr: 8 Pitocin Administration Comment: pitocin increased Placenta Delivery Placenta Delivery: Spontaneous Delivery Summary Summary Estimated blood loss (mL): 200 Condition of Delivery Examined: Cervix Examined Post Hemorrhage: No Intervention Required none BEBE GARCIA MD May 24, 2022 22:26
[2022-05-24] MEDS ORDERED: MEASLES,MUMPS,RUBELLA 1 EA INJ SQ ONE (22:30)
[2022-05-24] MEDS ORDERED: BENZOCAINE/MENTHOL (DERMOPLAST) 56 ML CAN TP PRN (22:30)
[2022-05-24] MEDS ORDERED: TETANUS,DIPTH,PERTUSS P/F (BOOSTRIX) 0.5 ML VIAL IM ONE (22:30)
[2022-05-24] MEDS ORDERED: ACETAMINOPHEN 500 MG TAB (TYLENOL) PO SCH (22:30)
[2022-05-24] MEDS ORDERED: IBUPROFEN 600 MG (MOTRIN) TAB PO SCH (22:30)
[2022-05-24] MEDS ORDERED: NALOXONE 0.4 MG/ML 1 ML (NARCAN) VIAL IV PRN (22:30)
[2022-05-24] MEDS ORDERED: WITCH HAZEL(TUCKS) 40 EA JAR TOP PRN (22:30)
[2022-05-24] MEDS: IBUPROFEN 600 MG (MOTRIN) TAB PO SCH (23:57)
[2022-05-24] MEDS: ACETAMINOPHEN 500 MG TAB (TYLENOL) PO SCH (23:57)
[2022-05-25 03:08] VITALS: BP 102/59
[2022-05-25] MEDS ORDERED: CATHETER FLUSH 10 ML SYR IV SCH (06:00)
[2022-05-25 06:03] LABS: BASOPHILS % (AUTO) 0 % (0-10); EOSINOPHILS % (AUTO) 0 % (0-10); HEMATOCRIT 31 % (35-52); HEMOGLOBIN 10.1 g/dL (11.5-16.0); LYMPHOCYTES # (AUTO) 2.5 10^3/uL (1.0-4.0); LYMPHOCYTES % (AUTO) 18 % (12-44); MEAN CORPUSCULAR HEMOGLOBIN 27 pg (25-34); MEAN CORPUSCULAR HGB CONC 33 g/dL (32-36); MEAN CORPUSCULAR VOLUME 81 fL (80-99); MONOCYTES # (AUTO) 0.8 10^3/uL (0.0-1.0); MONOCYTES % (AUTO) 6 % (0-12); NEUTROPHILS # (AUTO) 10.4 10^3/uL (1.8-7.8); NEUTROPHILS % (AUTO) 75 % (42-75); PLATELET COUNT 248 10^3/uL (130-400); WHITE BLOOD COUNT 13.9 10^3/uL (4.3-11.0)
[2022-05-25] MEDS: ACETAMINOPHEN 500 MG TAB (TYLENOL) PO SCH ×3 (06:36→18:06)
[2022-05-25] MEDS: IBUPROFEN 600 MG (MOTRIN) TAB PO SCH ×3 (06:36→18:06)
[2022-05-25 06:39] VITALS: BP 115/63
[2022-05-25 08:00] VITALS: BP 110/68
[2022-05-25] MEDS: DOCUSATE SODIUM 100 MG (COLACE) CAP PO SCH ×2 (08:11→19:51)
[2022-05-25 11:42] VITALS: BP 107/63
--- NOTE | 2022-05-25 12:03 | Progress Note ---
Subjective Subjective/Events-last exam No complaints. No vaginal bleeding. Objective Exam Last Set of Vital Signs Vital Signs Date Time Temp Pulse Resp B/P (MAP) Pulse Ox O2 Delivery O2 Flow Rate FiO2 05/25/22 11:42 36.7 73 18 107/63 (78) 97 Room Air Capillary Refill : Less Than 3 Seconds I&O Intake and Output 05/25/22 00:00 Blood Loss Quantification Method 200 ml Daily Weight Change No General: No Acute Distress Lungs: Clear to Auscultation Heart: Regular Rate Abdomen: Soft (with firm uterus) Results/Procedures Lab Laboratory Tests 05/25/22 05:40: White Blood Count 13.9H, Red Blood Count 3.76L, Hemoglobin 10.1L, Hematocrit 31L , Mean Corpuscular Volume 81, Mean Corpuscular Hemoglobin 27, Mean Corpuscular Hemoglobin Concent 33, Red Cell Distribution Width 12.7, Platelet Count 248, Mean Platelet Volume 9.0, Immature Granulocyte % (Auto) 1, Neutrophils (%) (Auto) 75, Lymphocytes (%) (Auto) 18, Monocytes (%) (Auto) 6, Eosinophils (%) (Auto) 0, Basophils (%) (Auto) 0, Neutrophils # (Auto) 10.4H, Lymphocytes # (Auto) 2.5, Monocytes # (Auto) 0.8, Eosinophils # (Auto) 0.0, Basophils # (Auto) 0.0, Immature Granulocyte # (Auto) 0.1 Assessment/Plan Assessment/Plan Admission Dx 1. IUP at term 40 weeks--delivered Admission Status: Inpatient Order (span 2 midnights) Assessment & Plan 1. IUP at term 40 weeks--delivered -will plan on dc in the am of 05/26 -BEBE Leslie MD May 25, 2022 12:03
[2022-05-25 19:51] VITALS: BP 100/56
[2022-05-26] MEDS: IBUPROFEN 600 MG (MOTRIN) TAB PO SCH ×2 (00:06→06:25)
[2022-05-26] MEDS: ACETAMINOPHEN 500 MG TAB (TYLENOL) PO SCH (00:07)
[2022-05-26 00:11] VITALS: BP 102/59
[2022-05-26 06:29] VITALS: BP 116/64
[2022-05-26 07:38] VITALS: BP 111/73
[2022-05-26] MEDS: DOCUSATE SODIUM 100 MG (COLACE) CAP PO SCH (07:38)
--- NOTE | 2022-05-26 10:03 | Discharge Inst-Women's Service ---
Discharge Inst-Women's Serv Depart Medication/Instructions New, Converted or Re-Newed RX: Other Instructions continue with vitamin for the next one month. Also may take [id number] ibuprofen 200 mg 2 or 3 tablets if needed for cramping Problems Reviewed?: Yes Consults/Follow Up Additional Follow Up: Yes (Dr Garcia at [facility] in 6 weeks) Activity Activity: Activity as Tolerated Driving Instructions: No Driving for 1 Week Nothing Inside Vagina: No [place] (for 6 weeks) Diet Discharge Diet: Regular Diet Return to The Hospital For: as below Symptoms to Report to : Bleeding Excessive, Pain Increased, Fever Over 101 Degrees F, Vaginal Discharge Foul For Any Problems or Questions: Contact Your Physician BEBE GARCIA MD May 26, 2022 10:03
--- NOTE | 2022-05-26 10:07 | Discharge Summary ---
Diagnosis/Chief Complaint Date of Admission May 24, 2022 at 11:45 Date of Discharge May 26, 2022 Discharge Date: May 26, 2022 Admission Diagnosis Admission Diagnosis 1. Intrauterine at 40 weeks 4 days gestation Discharge Diagnosis 1. Intrauterine at 40 weeks 4 days gestation Reason Hospital Visit 22-year-old 2 now T2 who initially presented to labor and delivery with spontaneous rupture of membranes. Patient presented during the morning of May 24, 2022. Fluid was noted to be clear. She had limited care through [facility]. There had been no ultrasound performed. The day she was to have ultrasound she went into labor. There was no GBS status available. Discharge Summary-OBS Procedures 1. Spontaneous vaginal delivery 2. Repair of midline episiotomy Discharge Physical Examination Allergies: Coded Allergies: No Known Drug Allergies (Unverified , 02/23/20) Vitals & I&Os Vital Signs Date Time Temp Pulse Resp B/P (MAP) Pulse Ox O2 Delivery O2 Flow Rate FiO2 05/26/22 07:38 36.5 71 18 111/73 (86) 99 Room Air General Appearance: No Acute Distress Respiratory: Clear to Auscultation Cardiovascular: Regular Rate Abdominal: Soft (with firm uterus) Hospital Course Was the Problem List Reviewed?: Yes patient presented to women's services on May 24, 2022 with ruptured membranes. She had minimal contractions and did require low-dose Pitocin augmentation. She did not request any pain medications or epidural. She eventually went on to completion and delivered a term viable female with Apgars of 8 at 1 minute and 9 at 5 minutes. See labor and delivery note for full details. Following delivery she underwent routine care orders. She did not have any complications during the remainder of hospital stay. She had a he moglobin in the morning of May 25 of 10.1 compared to admission of 11.8. She tolerated regular diet. He was not noted to have any shortness of breath or leg pain. Ultimately she was felt ready for dismissal during the morning of May 26, 2022. Discharge Instructions to patient/family Please see electronic discharge instructions given to patient. Discharge Medications Reviewed and agree with Discharge Medication list on patient's Discharge I nstruction sheet BEBE GARCIA MD May 26, 2022 10:07
== END 2022-05-26 13:52 | disposition home or self-care (01) | DRG 807 ==
LOC: LDRP 10:47 → WSo 10:47 → LDRP 11:45
PROVIDERS: ADMIT Family Medicine; ATTEND Family Medicine
PROC: 10E0XZZ Delivery of Products of Conception, External Approach (ICD-10-PCS; principal; 2022-05-24)
PROC: 0W8NXZZ Division of Female Perineum, External Approach (ICD-10-PCS; 2022-05-24)
DX: O48.0 Post-term pregnancy (principal); Z37.0 Single live birth; Z3A.40 40 weeks gestation of pregnancy
CPT/HCPCS: 36415; 85025; 86780; 86850; 86900; 86901; 99212